=== PATIENT | male | born 1955 | race Caucasian/White ===

== ENCOUNTER → 2023-12-12 07:59 | Outpatient (REF) | payer MEDICARE, OTHER, SELFPAY | LOC: DHSLP 07:59 | PROVIDERS: ATTENDING PHYSICIAN Internal Medicine Critical Care Medicine; FAMILY PHYSICIAN Family Medicine | DX: G47.33 Obstructive sleep apnea (adult) (pediatric) (principal) | CPT/HCPCS: 95800 ==

== ENCOUNTER → 2024-01-15 10:21 | Outpatient (REF) | payer MEDICARE, OTHER, SELFPAY ==
[2024-01-15 11:07] LABS: Hematocrit 37.9 % (39.0-52.0); Hemoglobin 13.5 g/dL (13.0-18.0); Mean Corp Hgb Conc. 35.6 g/dL (33.0-37.0); Mean Corpuscular Hgb 32.8 pg (27.0-31.0); Mean Corpuscular Volume 92.2 fL (80.0-94.0); Mean Platelet Volume 8.4 fL (7.4-10.4); Platelet Count 244 10^3/uL (130-400); Red Blood Cell Count 4.11 10^6/uL (4.70-6.10); Red Cell Dist. Width 12.2 % (11.5-14.5); White Blood Cell Count 3.8 10^3/uL (4.8-10.8)
[2024-01-15 11:17] LABS: ALT (SGPT) 28 U/L (0-50); AST (SGOT) 36 U/L (17-59); Albumin 4.5 g/dl (3.5-5.0); Alkaline Phosphatase 92 U/L (38-126); Blood Urea Nitrogen 20 mg/dl (9-20); Calcium 9.6 mg/dl (8.4-10.2); Carbon Dioxide 28 mmol/L (22-30); Chloride 100 mmol/L (98-107); Glucose 111 mg/dl (70-99); Potassium 4.4 mmol/L (3.5-5.1); Sodium 134 mmol/L (135-145); Total Bilirubin 1.6 mg/dl (0.2-1.3); Total Protein 7.9 g/dl (6.3-8.2); eGFR > 60.00
[2024-01-15 12:09] LABS: Absolute Neutrophils -Man Diff 2.5 10^3/uL (1.4-6.5); Band Neutrophils 1 % (0-3); Eosinophils 1 % (0-6); Lymphocytes 18 % (20-51); Monocytes 12 % (2-9); Myelocytes 2 % (-); Segmented Neutrophils 66 % (42-75)
[2024-01-15 12:11] LABS: Normal RBC Morphology No; Platelets Checked Yes; Poikilocytosis 1+; Total Cells Counted 100
== END ==
LOC: SDSPAT 10:21
PROVIDERS: ATTENDING PHYSICIAN Internal Medicine Cardiovascular Disease; FAMILY PHYSICIAN Family Medicine; OTHER PHYSICIAN Internal Medicine Cardiovascular Disease
DX: Z01.818 Encounter for other preprocedural examination (principal); I48.19 Other persistent atrial fibrillation
CPT/HCPCS: 36415; 80053; 85025; 86850; 86900; 86901; 93005

== ENCOUNTER 2024-01-29 06:01 | Day surgery (SDC) | payer MEDICARE, OTHER, SELFPAY ==
[2024-01-15 10:30] VITALS: BMI 35.5
--- NOTE | 2024-01-15 14:23 | HPS.HSE ---
Family Physician
-
Family Physician: Lowell Reagan
Chief Complaint
-
Persistent atrial fibrillation.
History of Present Illness
The patient is a 68 year old male presenting today for persistent atrial fibrillation. The patient reports a history of exertional dyspnea and fatigue secondary to this diagnosis. He previously underwent 2 failed cardioversions in the past
for his arrhythmia. He is on current pharmacological therapy with Flecainide and Metoprolol Succinate. He takes Eliquis for oral anticoagulation due to a CHADS-VASc of 2. He is interested in pursuing pulsed field atrial fibrillation ablation for
further arrhythmia management. He denies and current complaints today such as chest pain, shortness of breath at rest, palpitations, nausea, vomiting, diarrhea, lightheadedness, dizziness, cough, sore throat, or fever.
Medical History
Past Medical History
Past Medical History: Reports Other
Additional Past Medical History:
1. Persistent atrial fibrillation, status post cardioversion 07/2023 and 10/2023; pharmacological therapy with Flecainide and Metoprolol Succinate, oral anticoagulation with Eliquis.
2. Hypertension.
3. Hyperlipidemia.
4. Moderate mitral regurgitation.
5. Moderate tricuspid regurgitation.
6. Prostate cancer, 2019, status post radiation and hormonal therapy.
7. Hearing impairment bilaterally.
8. Mild leukopenia.
9. Mild hyponatremia.
10. Mild hyperbilirubinemia.
11. Obesity, BMI 35.5.
Past Surgical History: Reports Other
Additional Past Surgical History:
1. SOTERO-guided cardioversion.
2. Cardioversion.
3. Prostate biopsy.
Social History
Tobacco: Non-smoker
Alcohol: Other (Social beer drinking reported. )
Personal:
Living: Other (He lives with his in a 1 story home. )
Family History
Family History: Not pertinent
Allergies / Home Medications
Allergy/Medication List:
Home medications:
1. Apixaban 5 mg p.o. twice a day.
2. Flecainide 50 mg p.o. every 12 hours.
3. Hydrochlorothiazide 25 mg p.o. at bedtime.
4. Lisinopril 40 mg p.o. at bedtime.
5. Metoprolol Succinate 50 mg p.o. twice a day.
Allergies: Penicillin (childhood).
Review of Systems
-
A 12 point ROS was completed and negative except as noted: Yes
Physical Exam
Vital Signs
Blood pressure 115/85. Heart rate 76-99. Respirations 18. Pulse ox 99% on room air.
Height 5 feet, 6 inches. Weight 99.8 kg. BMI 35.5.
Physical Exam
General: Well Developed, Well Nourished and No Apparent Distress
HEENT: NormoCephalic, Moist mucous membranes, Atraumatic, PERRLA and Hearing Impaired
Respiratory: Clear
Cardiac: Irregular Rhythm
GI: Soft, Non Tender, Non Distended and Other (Obese. )
Musculoskeletal: Normal Gait & Station and Other (Left knee brace noted. )
Skin: Warm and Dry
Neuro: AO x 3 and Nonfocal/grossly intact
Laboratory Results
-
DIAGNOSTIC STUDIES as of 01/15/2024: White blood cell count 3.8. Hemoglobin 13.5. Platelet count 244,000. Sodium 134. Potassium 4.4. BUN 20. Creatinine 0.9. Glucose 111. Calcium 9.6. AST 36. ALT 28. Albumin 4.5. Blood type O positive.
EKG 01/15/2024: Atrial fibrillation. Left axis deviation.
Echocardiogram 07/27/2023: Ejection fraction is 50%. Moderate mitral regurgitation. Moderate tricuspid regurgitation. PASP 40 mmHg.
Lexiscan nuclear stress test 08/24/2023: ECG negative for ischemia. Normal perfusion imaging. Ejection fraction is 60%. Moderate risk due to inability to exercise.
Impression/Plan
-
IMPRESSION/PLAN:
1. Persistent atrial fibrillation: The patient is in need of a pulsed field atrial fibrillation ablation with Dr. Ngoc Harrison on 01/29/2024. The benefits and risks of the procedure have been explained to the patient. The patient understands these
risks and wishes to proceed. He is aware to continue his Eliquis uninterrupted prior to his procedure date.
[2024-01-29] VITALS (15 sets, daily range): BP systolic 90–123; BP diastolic 52–72; BMI 35.5
[2024-01-29 08:53] LABS: ACT-LR - POC 297 Seconds (116-155)
[2024-01-29 09:14] LABS: ACT-LR - POC 340 Seconds (116-155)
[2024-01-29 09:37] LABS: ACT-LR - POC 376 Seconds (116-155)
[2024-01-29 10:01] LABS: ACT-LR - POC 361 Seconds (116-155)
[2024-01-29 10:37] LABS: ACT-LR - POC 342 Seconds (116-155)
--- NOTE | 2024-01-29 11:30 | ITS.CL.ABL ---
[facility] - Ablation
Ablation
Procedure Report:
AFIB ablation:
Mr. Camargo is a very pleasant 68 yr old gentleman with symptomatic persistent AF failed DCCV and Flecainide presented today to the EP lab for atrial fibrillation ablation.
Date of the Procedure:
01/29/2024
Indications:
Persistent atrial fibrillation
Pre-Operative Diagnosis:
Persistent atrial fibrillation
Post-Operative Diagnosis:
Persistent atrial fibrillation
Procedure Performed:
Atrial fibrillation ablation with Pulsed-Field approach for pulmonary vein isolation
Performing Physician:
Ngoc Harrison MD
Assistants:
EP staff
Anesthesia:
See anesthesia records
Detailed Description of the Procedure:
Written informed consent was obtained from the patient after a full explanation of the risks and benefits of the procedure including the risks of sedation and anesthesia.
The patient was brought to the electrophysiology laboratory in stable condition in fasting state. Continuous electrocardiographic and hemodynamic monitoring was initiated.
The initial rhythm was atrial fibrillation.
The procedure site was meticulously prepared with surgical scrub and allowed to dry with no pooling. Sterile draping was applied to cover the procedure site. The image intensifier was draped with sterile bag and positioned over the patient. After
infusion of local anesthetic, vascular access was obtained under ultrasound guidance and sheaths were placed over guide wire as detailed below.
Sheath and Catheter Placement:
In the right femoral vein, an 8-Moldovan sheath was placed under ultrasound guidance for use during the ablation procedure and a mapping catheter was intermittently placed in the high right atrium, right ventricle, left atrium. In the right femoral
vein, another 9-Fr sheath was placed for use during intra-cardiac echo procedure. Another 7Fr sheath was placed in the left femoral vein for CS catheter placement.
The sheaths were upgraded as needed during the case. Intra-cardiac catheters were positioned using direct fluoroscopic guidance. Decapolar catheter advanced into CS position. ICE catheter was placed in RA. The following catheters / sheaths were
placed
Sheaths:
��������� 15Fr steerable sheath (FlexCath Cross�, [place]) in right femoral vein in right femoral vein
��������� 9Fr in right femoral vein
��������� 7Fr in right femoral vein
Catheters:
��������� TIFFANIE HD Grid mapping catheter � at locations of RA, LA
��������� PulseSelect� PFA catheter
��������� ICE catheter -AcuNav - at locations of RA, SVC, and RV.
��������� Decapolar Bard catheter in RA and CS
Intracardiac ECHO:
An 8-Moldovan AcuNav intracardiac ECHO (ICE) probe was advanced through the 9-Moldovan sheath in the right femoral vein into the right atrium under fluoroscopic and ICE ultrasound image guidance and a baseline ECHO study was performed. The left atrial
size was dilated. There was moderate tricuspid regurgitation. The aortic valve was grossly normal. There was normal left ventricular systolic functions. There is trace pericardial effusion. All the four veins were identified and has flow identified.
During the procedure, ICE was used for monitoring of complications, guidance of trans-septal puncture, monitor the catheter position and tracking ablation lesions. No change in the pericardial space noted throughout the procedure.
Trans-septal Puncture:
Heparin was initiated and infused to maintain appropriate ACT. A J-tipped guidewire was advanced through the 8-Moldovan sheath in the right femoral vein into the superior vena cava under fluoroscopic and ICE guidance. The 8-Moldovan sheath was exchanged
for a FlexCath Cross sheath which was advanced into the superior vena cava. An AcQCDIRAmed transseptal access system was utilized to perform the trans-septal puncture. The apparatus was withdrawn until it was in contact with the fossa ovalis. The
position was adjusted based on fluoroscopy and ultrasound images from ICE. Under fluoroscopic, hemodynamic and ICE ultrasound guidance, left atrium was cannulated by advancing the needle. Once atrial septum was cannulated, the needle was pulled back
and a guide wire was advanced through the needle into the left atrium. The guide wire was advanced into the left superior pulmonary vein. Both the sheath and the dilator was advanced into the left atrium. The dilator with the needle was withdrawn.
Blood was aspirated from the FlexCath cross sheath and arterial blood confirmed. The sheath was flushed. Saline injection noted into the left atrium on ICE. The mapping catheter was advanced in the Agilis sheath into the left pulmonary vein. Left
atrial pressure was measured.
3D Electroanatomic Mapping:
Using the HD Grid catheter advanced through sheath into the left atrium, an electroanatomic map (EAM) of the left atrium was created using Amicrobe mapping system. The map was used for localization of catheter position and tacking of ablation
lesions. The EAM of the left atrium showed 4 pulmonary veins with two left sided and two right sided veins electrically connected to the body the LA. There was extensive areas of low voltage noted in the left atrium with minimal electrical activity
in the posterior wall in atrial fibrillation. But once mapped in sinus rhythm, the posterior and anterior leblanc looks healthy with good amplitude of voltage without any evidence of significant scar.
The LA was dilated in size.
Following the EAM, preparation were made for ablation.
Phrenic nerve stimulation:
The decapolar catheter was placed in the SVC and phrenic nerve was paced to identify the pacing location. The phrenic was paced during the ablation as needed.
Ablation:
Ablation # 1: Pulmonary vein Isolation:
Using [employer]� pulsed field ablation system, pulmonary vein isolation was acieved. First the ablation catheter was placed in the LSPV and ostial ablation lesions were performed in a counter clock guthrie approach all around the PV ostium
circumferentially. Then the catheter was placed on the antral location and multiple ablation lesions were placed circumferentially on the antrum of the vein.
In the similar fashion, the LIPV were isolated.
Then the catheter was moved to right sided veins. The phrenic nerve was paced before and after the ablation on the right sided vein renee the anterior ablations.
The ostial and antral ablations were placed as noted above.
Cardioversion:
Once the PV isolation was achieved, decision was made to proceed with cardioversion. A 200 J biphasic shock was applied on the rosalina posterior Zoll patches and sinus rhythm was achieved. No significant pause noted.
Electroanatomic mapping of LA
Once the sinus rhythm achieved, the LA was mapped with HD grid in detail. There were areas of the LSPV and RSPV antrum that were still connected and decision was made to apply further ablations.
While mapping, patient went back into atrial fibrillation.
Reconnections ablation:
The areas of the antrum were ablated using the pulsed field PulseSelect PFA catheter.
Cardioversion:
Due to the developments of atrial fibrillation during the case, the decision was made to proceed with a cardioversion followed by the remainder of the ablation as detailed below. Therefore, a 200J shock was delivered to the chest via Zoll patches
placed with congregational of sinus rhythm. The patient remained hemodynamically stable throughout.
Post ablation Electroanatomic mapping:
Once ablation was completed, the EAM of the LA was done again in sinus rhythm with excellent demarcation of LA myocardium and isolated antral tissue. There was dissociated signals were noted in the veins as well.
EPS and Confirmation of the PVI and bidirectional block:
Following achievement of entrance block at the pulmonary veins, pacing from the HD catheter in each of the four veins at 10 milliamps for 2 milliseconds showed entrance and exit block. All PVI were rechecked at the end of the case and remained
isolated with dissociated and local capture with pacing. Entrance and exit block were demonstrated in all veins.
Procedure End
ICE study was done again that showed no epicardial accumulation. No complications noted.
Following the completion of the EP study, catheters were removed. Protamine 40 mg was given at the end of the procedure and ACT was checked repeatedly. The sheaths were removed and hemostasis achieved with manual compression after acceptable ACT is
achieved.
Left atrial Pressure:
Pre-Procedure: Mean LA pressure was 8mmHg
Post-Procedure: Mean LA pressure was 10mmHg
Post-Procedure: Mean LR pressure was 6mmHg
Fluoro time:
27.7 min / DAP 52.6
Estimated Blood loss:
<10 cc
Specimens Removed:
None.
Implants / Devices:
None
Urine output:
None
Packs / Drains/ Tubes:
None
Instrument / Sponge Count Correct:
Yes
Complications of the Procedure:
None
Condition of Patient at Time of Transfer:
Hemodynamically stable with no neurological or vascular compromise.
Summary:
Successful atrial fibrillation ablation with Pulsed Field approach for pulmonary vein isolation
Figures from the Procedure:
Figure 1: The electroanatomic mapping (EAM) of the left atrium with bipolar voltage (purple indicates normal electrical activity with vivar as no myocardial muscle electric activity indicating a line of block or scar.
Pre-ablation in AF
during ablation - signals on LSPV and RSPV
Post ablation
--- NOTE | 2024-01-29 15:21 | W.PN.UPDATE ---
Update Note
Progress Note Update
68 yo WM s/p PVI (same day). He feels good, no cp, sob, jl diet, voiding, amb w/o dizziness. EKG SR, R fem site VASCADE closure c/d/i no HT, soft. He will continue OAC eliquis, and flecainide. We will add PPI for 1 week. Activity restrictions
reviewed. He will f/u [facility] in 2 weeks. He is for d/c home after 230p.
AFIB ablation:
Mr. Camargo is a very pleasant 68 yr old gentleman with symptomatic persistent AF failed DCCV and Flecainide presented today to the EP lab for atrial fibrillation ablation.
Date of the Procedure:
01/29/2024
Procedure Performed:
Atrial fibrillation ablation with Pulsed-Field approach for pulmonary vein isolation
== END 2024-01-29 14:45 | disposition home or self-care (01) ==
LOC: CATH 06:01
PROVIDERS: ATTENDING PHYSICIAN Internal Medicine Cardiovascular Disease; CONSULT PHYSICIAN Specialist; FAMILY PHYSICIAN Family Medicine
DX: I48.19 Other persistent atrial fibrillation (principal); I10 Essential (primary) hypertension; E78.5 Hyperlipidemia, unspecified; I08.1 Rheumatic disorders of both mitral and tricuspid valves; Z85.46 Personal history of malignant neoplasm of prostate; H91.93 Unspecified hearing loss, bilateral; E80.6 Other disorders of bilirubin metabolism; E66.9 Obesity, unspecified; Z68.35 Body mass index [BMI] 35.0-35.9, adult; Z79.01 Long term (current) use of anticoagulants
CPT/HCPCS: C1732; C1894; C1769; C1730; C1892; C1759; 85347; 86900; 86901; 93005; 93656; C1760

== ENCOUNTER → 2025-09-15 12:36 | Outpatient (REF) | payer MEDICARE, OTHER, SELFPAY ==
[2025-09-15 17:08] LABS: C-Reactive Protein < 5.00 mg/L (0.0-10.00)
== END ==
LOC: HWRAD 12:36
PROVIDERS: ATTENDING PHYSICIAN Internal Medicine Cardiovascular Disease; FAMILY PHYSICIAN Family Medicine
DX: E78.2 Mixed hyperlipidemia (principal)
CPT/HCPCS: 36415; 75571; 82172; 83695; 86140

== ENCOUNTER → 2025-09-21 07:27 | Outpatient (REF) | payer MEDICARE, OTHER, SELFPAY | LOC: HWRCS 07:27 | PROVIDERS: ATTENDING PHYSICIAN Internal Medicine Cardiovascular Disease; FAMILY PHYSICIAN Family Medicine | DX: I34.0 Nonrheumatic mitral (valve) insufficiency (principal) | CPT/HCPCS: 93306 ==